=== PATIENT | male | born 2000 | race Hispanic/Latino ===

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

== ENCOUNTER 2020-06-21 12:28 | Emergency (ER) | payer OTHER ==
[~2020-06-21 12:28] MED LIST: CYCL-707 PO; IBUP-1022 PO
[2020-06-21 12:53] VITALS: BP 131/74
[2020-06-21 14:47] LABS: HEMATOCRIT 47.3 % (42.0-52.0); HEMOGLOBIN 15.6 g/dl (13.5-17.5); PLATELET COUNT, AUTOMATED 210 10^3/uL (150-450); RED BLOOD COUNT 5.03 10^6/uL (4.30-6.10); WHITE BLOOD COUNT 5.7 10^3/uL (4.0-10.0)
[2020-06-21 14:54] LABS: AMPHETAMINES LEVEL URINE NEGATIVE (NEGATIVE); BARBITURATES URINE NEGATIVE (NEGATIVE); BENZODIAZEPINES URINE NEGATIVE (NEGATIVE); CANNABINOIDS URINE NEGATIVE (NEGATIVE); COCAINE METABOLITE URINE NEGATIVE (NEGATIVE); METHADONE URINE NEGATIVE (NEGATIVE); OPIATES URINE NEGATIVE (NEGATIVE); PHENCYCLIDINE URINE NEGATIVE (NEGATIVE)
[2020-06-21 15:07] LABS: ACETAMINOPHEN LEVEL < 2.0 UG/ML (10.0-30.0); ALBUMIN 4.1 GM/DL (3.2-5.2); ALT/SGPT 71 U/L (12-78); BILIRUBIN,DIRECT 0.2 MG/DL (0.0-0.2); BILIRUBIN,TOTAL 0.5 MG/DL (0.2-1.0); BLOOD UREA NITROGEN 12 MG/DL (7-18); CALCIUM LEVEL 9.8 MG/DL (8.5-10.1); CARBON DIOXIDE LEVEL 30 MEQ/L (21-32); CHLORIDE LEVEL 105 MEQ/L (98-107); CREATININE FOR GFR 0.98 MG/DL (0.70-1.30); ETHYL ALCOHOL (ETHANOL) < 0.003 % (0.000-0.010); GLUCOSE, FASTING 88 MG/DL (70-100); SALICYLATE LEVEL < 1.7 MG/DL (5.0-30.0); SODIUM LEVEL 142 MEQ/L (136-145); TOTAL PROTEIN 7.5 GM/DL (6.4-8.2)
--- NOTE | 2020-06-21 16:51 | MHIPNPDOC ---
[facility] Progress Note Progress Note DATE OF SERVICE: 06/21/20 HISTORY: the patient says that he feels betrayed because someone he has considered a friend has said something about him that is not true. Apparently, over the weekend he said he was going to drive off the road because he was upset. today, he adamantly denies wanting to kill himself and his JOSEPH is fully supportive of him, they believe he is future orientated, he wants to participate in an event on Sunday ( 06/23/2020). The patient confirms this, he says he wants to go [place], he has never something like this and he is very enthusiastic about it. he says he felt hopless and helpless over the weekend but not anymore. denies feeling guilty. Reports having problems sleeping, he says his appetite is not very good, he says he doesn't feel sad, he is still motivated, his energy levels are OK and he denies SI/HI. VITAL SIGNS: See below. NEW TEST RESULTS: See below CURRENT MEDICATIONS: See below. MENTAL STATUS EXAMINATION: Patient is a 19 -year old male, who is alert, cooperative, dressed in hospital gown, wearing a face mask due to coronavirus pandemic. Speech: Is normal in r/t/v, spontaneous and fluent. Language skills are intact. Thought processes including: linear and coherent. Thought content: denies SI/HI, denies thought delusions, denies anxious or depressive thoughts at this time. he is goal directed, future orientated Description of associations: intact. Description of abnormal or psychotic thoughts: denies TAV hallucinations, denies thought delusions, denies SI/HI. Judgment: Fair Insight: fair. Orientation: x 3. Recent and remote memory: intact. Attention span and concentration: fair. Language: intact. Fund of knowledge: average. Mood: euthymic. Affect: reactive, full, congruent with mood. DIAGNOSES: 1. Adjustment disorder with anxious/depressed mood ASSESSMENT: the patient is not suicidal, he is not in danger to self or others and everything he has said has been confirmed by his steam bone press tender. he is future orientated, he wants to go back to and participate in an activity that is going to take place on Sunday. tomorrow he will go to [facility] first thing in the morning. I think he was very upset when he made a statement that brought him to the ED, that he wanted to drive his car off the road. He os not depressed, he was not upset and he could not handle his emotions properly at that time. he is not in danger to self or others at this time and he understands he needs sup port, he is willing to go to [facility]. He can be discharged to his [facility] and can go back to . MANAGEMENT PLAN: As above TIME SPENT: 15 minutes. Vital Signs Vital Signs Date Time Temp Pulse Resp B/P (MAP) Pulse Ox O2 Delivery O2 Flow Rate FiO2 06/21/20 12:53 98.4 63 18 131/74 (93) 99 Room Air Laboratory Data 24H Labs Laboratory Tests 2 06/21/20 14:13: Nucleated Red Blood Cells % (auto) 0.0, Anion Gap 7L, Calcium Level 9.8, Total Bilirubin 0.5, Direct Bilirubin 0.2, Aspartate Amino Transf (AST/SGOT) 37, Alanine Aminotransferase (ALT/SGPT) 71, Alkaline Phosphatase 74, Total Protein 7.5, Albumin 4.1, Albumin/Globulin Ratio 1.2, Thyroid Stimulating Hormone (TSH) 1.420, Salicylates Level < 1.7L, Urine Opiates Screen NEGATIVE, Urine Methadone Screen NEGATIVE, Acetaminophen Level < 2.0L, Urine Barbiturates Screen NEGATIVE, Urine Phencyclidine Screen NEGATIVE, Urine Amphetamines Screen NEGATIVE, Urine Benzodiazepines Screen NEGATIVE, Urine Cocaine Metabolite Screen NEGATIVE, Urine Cannabinoids Screen NEGATIVE, Ethyl Alcohol Level < 0.003 CBC/BMP Laboratory Tests 06/21/20 14:13 Allergies Coded Allergies: No Known Allergies (Unverified , 11/14/18) TONE GLASER MD June 21, 2020 16:23
== END 2020-06-21 19:00 | disposition home or self-care (01) ==
LOC: M ED 12:28
DX: Z04.6 Encounter for general psychiatric examination, requested by authority (principal)

== ENCOUNTER 2020-09-01 12:53 | Emergency (ER) | payer OTHER ==
[~2020-09-01] VITALS: Ht 175.3 cm; Wt 78.6 kg
[2020-09-01] MEDS ORDERED: QC A650T3 PO (13:02)
[2020-09-01] MEDS ORDERED: ECOT81TA5 PO (13:07)
[2020-09-01] MEDS ORDERED: MM S100C PO (13:07)
[2020-09-01] MEDS ORDERED: RA M1SUB SL (13:07)
[2020-09-01] MEDS ORDERED: METH-1164 PO (13:07)
[2020-09-01] MEDS ORDERED: NAPR-885 PO (13:07)
[2020-09-01] MEDS ORDERED: MULT1TAB8 PO (13:07)
[2020-09-01 14:46] LABS: BASO # 0.1 10^3/uL (0.0-0.2); BASO % 0.7 % (0.0-1.0); EOS # 0.3 10^3/uL (0.0-0.5); EOS % 4.2 % (0.0-3.0); HEMATOCRIT 40.4 % (42.0-52.0); HEMOGLOBIN 12.6 g/dl (13.5-17.5); LYMPH # 1.7 10^3/uL (1.5-5.0); LYMPH % 23.6 % (24.0-44.0); MEAN CORPUSCULAR HGB CONC 31.2 g/dl (32.0-36.5); MEAN CORPUSCULAR VOLUME 92.9 fl (80.0-96.0); MONO # 0.5 10^3/uL (0.0-0.8); MONO % 7.1 % (2.0-8.0); NEUTROPHILS # 4.6 10^3/uL (1.5-8.5); PLATELET COUNT, AUTOMATED 279 10^3/uL (150-450); RED BLOOD COUNT 4.35 10^6/uL (4.30-6.10); WHITE BLOOD COUNT 7.2 10^3/uL (4.0-10.0)
[2020-09-01] MEDS ORDERED: CEPH500C PO ×2 (15:53→15:59)
[2020-09-01] MEDS ORDERED: PHEN-501 PO (15:54)
[2020-09-01 16:11] VITALS: BP 122/64
== END 2020-09-01 16:13 | disposition home or self-care (01) ==
LOC: M ED 12:53
DX: N30.00 Acute cystitis without hematuria (principal); R30.0 Dysuria; N39.0 Urinary tract infection, site not specified; R31.29 Other microscopic hematuria

== ENCOUNTER 2021-02-26 16:20 | Emergency (ER) | payer OTHER ==
[~2021-02-26] VITALS: Ht 175.3 cm; Wt 82.7 kg
[~2021-02-26 16:20] MED LIST changes: +CEPH500C PO; +ECOT81TA5 PO; +METH-1164 PO; +MM S100C PO; +MULT1TAB8 PO; +NAPR-885 PO; +PHEN-501 PO; +QC A650T3 PO; +RA M1SUB SL
[2021-02-26] MEDS ORDERED: LIDOCAINE 1% MDV 20ML VIAL IM ONE (19:25)
[2021-02-26] MEDS ORDERED: IBUPROFEN 800 MG TAB PO ONE (19:25)
[2021-02-26] MEDS ORDERED: IBUP80TA PO (20:08)
[2021-02-26] MEDS ORDERED: BACT800T5 PO (20:08)
[2021-02-26] MEDS ORDERED: BACTRIM 160MG/800MG DS TAB PO ONE (20:10)
[2021-02-26 20:40] VITALS: BP 121/67
== END 2021-02-26 20:45 | disposition home or self-care (01) ==
LOC: M ED 16:20
DX: L05.01 Pilonidal cyst with abscess (principal); Z87.891 Personal history of nicotine dependence

== ENCOUNTER 2021-02-27 17:49 | Emergency (ER) | payer OTHER ==
[~2021-02-27] VITALS: Ht 175.3 cm; Wt 82.7 kg
[2021-02-27 17:49] VITALS: BP 132/62
[~2021-02-27 17:49] MED LIST changes: +BACT800T5 PO; +IBUP80TA PO
== END 2021-02-27 19:53 | disposition home or self-care (01) ==
LOC: M ED 17:49
DX: Z51.89 Encounter for other specified aftercare (principal)

== ENCOUNTER 2021-04-29 11:13 | Inpatient (IN) | payer OTHER ==
[~2021-04-29] VITALS: Ht 175.3 cm; Wt 86.7 kg
[2021-04-29 12:12] LABS: HEMOGLOBIN 13.5 g/dl (13.5-17.5); MEAN CORPUSCULAR HEMOGLOBIN 29.5 pg (27.0-33.0); MEAN CORPUSCULAR HGB CONC 32.9 g/dl (32.0-36.5); MEAN CORPUSCULAR VOLUME 89.7 fl (80.0-96.0); PLATELET COUNT, AUTOMATED 235 10^3/uL (150-450); RED BLOOD COUNT 4.57 10^6/uL (4.30-6.10); WHITE BLOOD COUNT 6.9 10^3/uL (4.0-10.0)
[2021-04-29 12:47] LABS: ACETAMINOPHEN LEVEL < 2.0 UG/ML (10.0-30.0); ALBUMIN 3.9 GM/DL (3.2-5.2); ALT/SGPT 23 U/L (12-78); BILIRUBIN,DIRECT < 0.1 MG/DL (0.0-0.2); BILIRUBIN,TOTAL 0.3 MG/DL (0.2-1.0); BLOOD UREA NITROGEN 19 MG/DL (7-18); CALCIUM LEVEL 9.1 MG/DL (8.5-10.1); CARBON DIOXIDE LEVEL 29 MEQ/L (21-32); CHLORIDE LEVEL 108 MEQ/L (98-107); ETHYL ALCOHOL (ETHANOL) < 0.003 % (0.000-0.010); GLOMERULAR FILTRATION RATE > 60.0 (>60); GLUCOSE, FASTING 91 MG/DL (70-100); POTASSIUM SERUM 4.7 MEQ/L (3.5-5.1); SALICYLATE LEVEL < 1.7 MG/DL (5.0-30.0); SODIUM LEVEL 141 MEQ/L (136-145); THYROID STIMULATING HORMONE 0.768 uIU/ML (0.358-3.740)
[2021-04-29 12:48] LABS: AMPHETAMINES LEVEL URINE NEGATIVE (NEGATIVE); BARBITURATES URINE NEGATIVE (NEGATIVE); BENZODIAZEPINES URINE NEGATIVE (NEGATIVE); CANNABINOIDS URINE NEGATIVE (NEGATIVE); COCAINE METABOLITE URINE NEGATIVE (NEGATIVE); METHADONE URINE NEGATIVE (NEGATIVE); OPIATES URINE NEGATIVE (NEGATIVE); PHENCYCLIDINE URINE NEGATIVE (NEGATIVE)
[2021-04-29] MEDS ORDERED: GABA-282 PO (14:51)
[2021-04-29] MEDS ORDERED: GABAPENTIN 300 MG CAP PO ONE (15:00)
[2021-04-29] MEDS ORDERED: IBUPROFEN 800 MG TAB PO SCH (16:00)
[2021-04-29 16:05] LABS: RSV AMPLIFICATION NEGATIVE (NEGATIVE)
[2021-04-29] MEDS ORDERED: BUPR1TAB52 PO (16:35)
[2021-04-29] MEDS ORDERED: D-50TAB PO (16:35)
[2021-04-29] MEDS ORDERED: NAPR-885 PO (16:35)
[2021-04-29] MEDS ORDERED: HOME MED LIST COMPLETE! XX SCH (16:40)
[2021-04-29] MEDS ORDERED: MAALOX 30 ML SUSP *UDC PO PRN (19:10)
[2021-04-29] MEDS ORDERED: LORazepam 1 MG TAB PO PRN (19:10)
[2021-04-29] MEDS ORDERED: MOM 30ML SUSPENSION UDC PO PRN (19:10)
[2021-04-29 21:19] VITALS: BP 121/56
[2021-04-29] MEDS: GABAPENTIN 300 MG CAP PO SCH (22:16)
[2021-04-29] MEDS: traZODone 50 MG TAB PO PRN (22:16)
[2021-04-29] MEDS: IBUPROFEN 800 MG TAB PO SCH (22:17)
[2021-04-30 07:13] VITALS: BP 140/64
[2021-04-30] MEDS: GABAPENTIN 300 MG CAP PO SCH ×3 (08:27→21:34)
[2021-04-30] MEDS: IBUPROFEN 800 MG TAB PO SCH ×3 (08:29→21:34)
[2021-04-30 18:54] VITALS: BP 142/80
[2021-04-30] MEDS: traZODone 50 MG TAB PO PRN (21:34)
[2021-04-30 22:00] VITALS: BP 142/80
[2021-05-01 06:42] VITALS: BP 139/78
[2021-05-01] MEDS: IBUPROFEN 800 MG TAB PO SCH ×3 (08:57→21:02)
[2021-05-01] MEDS: GABAPENTIN 300 MG CAP PO SCH ×3 (08:57→21:02)
[2021-05-01] MEDS ORDERED: buPROPion (WELLBUTRIN SR) 100 MG SR TAB PO ONE (16:50)
[2021-05-01] MEDS: buPROPion (WELLBUTRIN SR) 100 MG SR TAB PO SCH ×2 (16:57→21:02)
[2021-05-01 18:57] VITALS: BP 138/77
[2021-05-01] MEDS: traZODone 50 MG TAB PO PRN (21:02)
[2021-05-02 06:39] VITALS: BP 110/55
[2021-05-02] MEDS: GABAPENTIN 300 MG CAP PO SCH ×3 (09:02→21:37)
[2021-05-02] MEDS: buPROPion (WELLBUTRIN SR) 100 MG SR TAB PO SCH ×3 (09:02→21:38)
[2021-05-02] MEDS: IBUPROFEN 800 MG TAB PO SCH ×3 (09:03→21:40)
[2021-05-02 16:28] VITALS: BP 130/60
[2021-05-02] MEDS: traZODone 50 MG TAB PO PRN (21:38)
[2021-05-03 06:41] VITALS: BP 128/71
[2021-05-03] MEDS: buPROPion (WELLBUTRIN SR) 100 MG SR TAB PO SCH ×3 (09:30→21:41)
[2021-05-03] MEDS: GABAPENTIN 300 MG CAP PO SCH ×3 (09:30→21:41)
[2021-05-03] MEDS: IBUPROFEN 800 MG TAB PO SCH ×3 (09:31→21:42)
[2021-05-03 16:42] VITALS: BP 134/64
[2021-05-03] MEDS: traZODone 50 MG TAB PO PRN (21:41)
[2021-05-04 06:20] VITALS: BP 143/65
[2021-05-04] MEDS: buPROPion (WELLBUTRIN SR) 100 MG SR TAB PO SCH (08:43)
[2021-05-04] MEDS: GABAPENTIN 300 MG CAP PO SCH (08:43)
[2021-05-04] MEDS: IBUPROFEN 800 MG TAB PO SCH (08:44)
[2021-05-04] MEDS ORDERED: BUPR10TASR PO ×2 (10:01→11:07)
[2021-05-04] MEDS ORDERED: TRAZ-252 PO ×2 (10:01→11:07)
== END 2021-05-04 11:49 | disposition home or self-care (01) | DRG 882 ==
LOC: M ED 11:13 → EDBD 11:13 → M ED INP 19:09 → M PSY 21:11
PROVIDERS: ADMIT Student in an Organized Health Care Education/Training Program; ATTEND Psychiatry & Neurology Psychiatry
DX: F43.25 Adjustment disorder with mixed disturbance of emotions and conduct (principal); R45.851 Suicidal ideations; Z56.4 Discord with boss and workmates; F32.A Depression, unspecified; Z79.899 Other long term (current) drug therapy; Z20.822 Contact with and (suspected) exposure to COVID-19; Z63.8 Other specified problems related to primary support group

== ENCOUNTER 2021-06-10 21:37 | Emergency (ER) | payer OTHER ==
[~2021-06-10] VITALS: Ht 175.3 cm; Wt 90.9 kg
[~2021-06-10 21:37] MED LIST changes: +BUPR10TASR PO; +BUPR1TAB52 PO; +D-50TAB PO; +GABA-282 PO; +TRAZ-252 PO
[2021-06-11] MEDS ORDERED: BACI500O8 TOP (00:59)
[2021-06-11] MEDS ORDERED: BACITRACIN OINTMENT 30GM TUBE TOP ONE (01:00)
[2021-06-11 01:13] VITALS: BP 117/57
[2021-06-11 02:25] LABS: GC DNA AMPLIFICATION NEGATIVE (NEGATIVE)
== END 2021-06-11 01:23 | disposition home or self-care (01) ==
LOC: M ED 21:37
DX: N48.89 Other specified disorders of penis (principal); Z79.899 Other long term (current) drug therapy